=== PATIENT | male | born 1965 | race Hispanic/Latino ===

== ENCOUNTER → 2019-04-26 | Outpatient (CLI) | payer MEDICAID | END | disposition home or self-care (01) | LOC: OIH 09:31 | PROVIDERS: ATTEND Internal Medicine Gastroenterology | DX: K94.20 Gastrostomy complication, unspecified (principal) | CPT/HCPCS: 74018 ==

== ENCOUNTER → 2019-11-03 | Outpatient (CLI) | payer MEDICARE ==
[~2019-11-03] MED LIST: DIATR MEGLU/DIATRIZOATE SODIUM 30 ML BOTTLE ONE
== END | disposition home or self-care (01) ==
LOC: RAH 11:54
PROVIDERS: ATTEND Internal Medicine
DX: M47.896 Other spondylosis, lumbar region (principal); K94.20 Gastrostomy complication, unspecified
CPT/HCPCS: 74018; Q9963

== ENCOUNTER → 2020-08-19 | Outpatient (CLI) | payer MEDICARE | END | disposition home or self-care (01) | LOC: RAH 11:38 | PROVIDERS: ATTEND Internal Medicine Gastroenterology | DX: Z46.59 Encounter for fitting and adjustment of other gastrointestinal appliance and device (principal); K94.20 Gastrostomy complication, unspecified | CPT/HCPCS: 74018; Q9963 ==

== ENCOUNTER 2023-07-30 08:39 | Day surgery (SDC) | payer MEDICARE ==
[2023-07-28 13:06] LABS: BASOPHILS # (AUTO) 0.04 K/uL (0.00-0.20); BASOPHILS % (AUTO) 0.5 % (0.0-5.0); EOSINOPHILS # (AUTO) 1.03 K/uL (0.00-0.70); EOSINOPHILS % (AUTO) 13.1 % (0.0-8.0); HEMATOCRIT 42.2 % (42-54); IMMATURE GRANULOCYTE ABSOLUTE 0.01 K/uL (0-1); LYMPHOCYTES # (AUTO) 2.8 K/uL (1.0-4.8); LYMPHOCYTES % (AUTO) 35.5 % (21.0-51.0); MEAN CORPUSCULAR HEMOGLOBIN 29.8 pg (27.0-33.0); MEAN CORPUSCULAR HGB CONC 33.4 g/dL (32.0-36.0); MEAN CORPUSCULAR VOLUME 89.2 fL (79-99); MONOCYTES # (AUTO) 0.6 K/uL (0.1-1.0); MONOCYTES % (AUTO) 7.1 % (3.0-13.0); NEUTROPHILS # (AUTO) 3.4 K/uL (1.8-7.7); NEUTROPHILS % (AUTO) 43.7 % (40.0-77.0); PLATELET COUNT (AUTO) 245 K/uL (130-400); RED BLOOD CELL COUNT(AUTO) 4.73 MIL/uL (4.50-6.20); RED CELL DISTRIBUTION WIDTH 13.1 % (11.0-15.5); WHITE BLOOD COUNT (AUTO) 7.9 K/uL (4.8-10.8)
[2023-07-28 13:20] LABS: CREATININE 1.3 mg/dL (0.5-1.3)
[2023-07-28 13:22] LABS: INR 1.02 (0.85-1.15)
[2023-07-28 13:23] LABS: PARTIAL THROMBOPLASTIN TIME 32.2 SEC (26.3-35.5)
[2023-07-28 13:39] LABS: B-TYPE NATRIURETIC PEPTIDE 13 pg/mL (0-100)
[2023-07-28 16:29] VITALS: BP 159/90; PULSE 69; RESP 16
[2023-07-30] VITALS (11 sets, daily range): BP systolic 139–165; BP diastolic 81–93; PULSE 55–64; RESP 14–17
[~2023-07-30] VITALS: Ht 180.3 cm; Wt 91.7 kg
[~2023-07-30 08:39] MED LIST changes: +AMLO-258 PO; +APIX5TAB PO; -DIATR MEGLU/DIATRIZOATE SODIUM 30 ML BOTTLE ONE; +LISI20TA24 PO; +LOSA50TA64 PO; +PANT20TA18 PO
[2023-07-30 10:16] LABS: CREATININE 1.4 mg/dL (0.5-1.3); POTASSIUM 3.4 mmol/L (3.5-5.1)
[2023-07-30] MEDS ORDERED: NITROGLYCERIN 50MG VIAL ONE (11:17)
[2023-07-30] MEDS ORDERED: LIDOCAINE HCL 400MG/20ML VIAL ONE (11:17)
[2023-07-30] MEDS ORDERED: HEPARIN 10,000 UNIT/10ML (1,000 UNIT/ML) VIAL ONE (11:17)
[2023-07-30] MEDS ORDERED: IOHEXOL 350 MG/ML 100ML INFUS..BTL IV ONE (11:17)
[2023-07-30] MEDS ORDERED: IOHEXOL-350 50ML VIAL IV ONE (11:17)
[2023-07-30] MEDS ORDERED: NICARDIPINE 25MG INJ IV ONE (11:28)
[2023-07-30] MEDS ORDERED: FENTANYL CITRATE PF 50 MCG/1 ML 2ML VIAL ONE (11:30)
[2023-07-30] MEDS ORDERED: BIVALIRUDIN 250 MG/VIAL IV ONE (11:30)
[2023-07-30] MEDS ORDERED: MIDAZOLAM HCL 1 MG/ML 2ML VIAL ONE (11:30)
[2023-07-30] MEDS ORDERED: 0.9%NACL 1000ML 1,000 ML IV SCH (12:30)
[2023-07-30] MEDS ORDERED: DEXTROSE 50%-WATER 50 ML DISP.SYRIN IV PRN (12:30)
[2023-07-30 13:18] LABS: APPEARANCE,URINE CLEAR (CLEAR); BILIRUBIN,URINE NEGATIVE (NEGATIVE); COLOR,URINE LIGHT-YELLOW (YELLOW); GLUCOSE, URINE (UA) NEGATIVE (NEGATIVE); KETONES,URINE NEGATIVE (NEGATIVE); LEUKOCYTE ESTERASE ,URINE NEGATIVE Leu/uL (NEGATIVE); NITRATE,URINE NEGATIVE (NEGATIVE); OCCULT BLOOD,URINE NEGATIVE (NEGATIVE); PROTEIN,URINE NEGATIVE (NEGATIVE); UROBILINOGEN,URINE 0.2 mg/dL (0.2-1.0)
[2023-07-30 13:29] LABS: ADD UA MICROSCOPIC NO
[2023-07-30] MEDS ORDERED: INSULIN HUMULIN R 100 UNIT/ML 3ML SQ SCH (16:30)
== END 2023-07-30 16:55 | disposition home or self-care (01) ==
LOC: DAH 08:39
PROVIDERS: ATTEND Internal Medicine Interventional Cardiology
DX: I25.119 Atherosclerotic heart disease of native coronary artery with unspecified angina pectoris (principal); I11.0 Hypertensive heart disease with heart failure; I50.32 Chronic diastolic (congestive) heart failure; E11.59 Type 2 diabetes mellitus with other circulatory complications; E11.43 Type 2 diabetes mellitus with diabetic autonomic (poly)neuropathy; E78.2 Mixed hyperlipidemia; I63.9 Cerebral infarction, unspecified; Z79.01 Long term (current) use of anticoagulants; Z79.899 Other long term (current) drug therapy; Z82.49 Family history of ischemic heart disease and other diseases of the circulatory system; Z82.3 Family history of stroke
CPT/HCPCS: 80048 ×2; 83880; 85025; 85610; 85730; 36415 ×2; 71045; 93005; 93458; 82948; 81003; C1894 ×2; C1760; J3010; J3490 ×2; J2250; J1644; Q9967 ×2; A4215; A4222; A4221; A4663; A4216; A4606; Q9965; A4223 ×3; 99156; 99157; J0583

== ENCOUNTER → 2025-03-09 | Outpatient (CLI) | payer MEDICARE ==
--- NOTE | 2025-03-09 13:00 | NUR ---
MBSS COMPLETED (OUTPATIENT). No aspirations; Deep non-transient penetrations during the swallow with thin liquids via straw sips and before the swallow with mixed textures with no cough response; non-transient penetration with pudding thick textures cleared with innate throat clears. RECOMMEND: regular solids (no mixed textures), thin liquids (small sips; no straws), and pills crushed with pureed solids as tolerated. COMPENSATORY STRATEGIES: 1. sit upright during oral intake 2. small bites/sips 3. slow oral intake 4. extra dry swallows NOTES: Pt with Hx of CVA (2017) and PEG tube in place. Pt observed with left sided facial droop/weakness and breathy vocal quality. As per patient, unable to report what is causing decreased vocal quality. He reports ENT doctor noted one sided vocal cord weakness; however MD told him it should not be the cause of decreased and breathy vocal quality. Pt has also completed speech therapy treatment at [facility] outpatient rehab and continues with home exercise program. DIAGNOSTIC FINDINGS: Pt presented with moderate pharyngeal dysphagia characterized by decreased tongue base retraction; delayed pharyngeal response trigger and decreased hyo-laryngeal elevation/excursion evidenced by tongue pumping; premature spillage to valleculae with spillover to pyriform sinuses; residue on base of tongue, valleculae, pyriform sinuses, and posterior pharyngeal wall; resulting in no aspirations; Deep non-transient penetrations during the swallow with thin liquids via straw sips and before the swallow with mixed textures with no cough response; non-transient penetration with pudding thick textures cleared with innate throat clears. SLEEVE BASTER reviewed results and recommendations with patient and present at time of eval. SLEEVE BASTER educated patient on risks and consequences of aspiration. Speech therapy not warranted at this time as patient has already completed therapy interventions and is currently on a home exercise program. All questions answered. Addendum: 03/10/[address] BACILIO BENAVIDEZ Amended: Links added.
--- NOTE | 2025-03-15 09:02 | HMCIMG ---
MODIFIED BARIUM SWALLOW W CINE REASON: Dysphagia, oropharyngeal phase; Feeding difficulties, unspecified FINDINGS: Fluoroscopic assistance was provided to the speech pathologist while performing examination. For findings and dietary recommendations, refer to speech pathologist's report. FLUORO TIME: 3.2 minutes IMPRESSION: Modified barium swallow as described.
== END | disposition home or self-care (01) ==
LOC: RAH 12:37
PROVIDERS: ATTEND Internal Medicine Gastroenterology
DX: R13.12 Dysphagia, oropharyngeal phase (principal); R63.30 Feeding difficulties, unspecified
CPT/HCPCS: 74230; 92611